=== PATIENT | female | born 1950 | race Caucasian/White ===

== ENCOUNTER 2018-01-04 08:49 | Inpatient (IN) | payer BC ==
[~2018-01-04 08:49] MED LIST: ALPRAZolam 0.25 MG TAB PO PRN; ALPRAZolam 0.5 MG TAB PO PRN; ASPIRIN 325 MG TAB PO STA; ATORVASTATIN 80 MG TAB PO STA; LIDOCAINE 2% INJ 20 MG/ML (20 ML MDV) ONE; MIDAZOLAM 2 MG/2 ML VIAL ONE; NITROGLYCERIN SL TABS 0.4 MG TAB SUBLINGUAL PRN; SODIUM CHLORIDE 0.9% 1,000 ML IV ONE; SODIUM CHLORIDE 0.9% 1,000 ML in EMPTY BAG 1 BAG IV ONE; diphenhydrAMINE 50 MG/ML 1 ML VIAL ONE
[2018-01-04] MEDS: MIDAZOLAM 2 MG/2 ML VIAL IVP ONE ×2 (08:57→09:11)
[2018-01-04] MEDS ORDERED: LIDOCAINE 2% INJ 20 MG/ML SQ ONE (08:57)
[2018-01-04] MEDS ORDERED: diphenhydrAMINE 50 MG/ML 1 ML VIAL IVP ONE (08:57)
[2018-01-04] MEDS ORDERED: fentaNYL (PF) 50 MCG/ML 2 ML AMP ONE (09:09)
[2018-01-04] MEDS ORDERED: fentaNYL (PF) 50 MCG/ML 2 ML AMP IVP ONE (09:10)
[2018-01-04] MEDS ORDERED: RX INFO: IV CONTRAST WAS GIVEN 1 EACH MISC MISCELLANE PRN (09:36)
[2018-01-04] MEDS ORDERED: IOPAMIDOL-370 125ML BTL INJ ONE (09:41)
[2018-01-04] MEDS ORDERED: SODIUM CHLORIDE 0.9% 1,000 ML IV SCH (09:45)
[2018-01-04] MEDS ORDERED: amLODIPine 10 MG TAB PO SCH (09:45)
[2018-01-04] MEDS ORDERED: ISOSORBIDE MONONITRATE ER 30 MG TAB.ER.24H PO SCH (09:45)
--- NOTE | 2018-01-04 10:06 | CC ---
CARDIAC CATHETERIZATION REPORT INDICATION: Unstable angina. PROCEDURE NOTE: After obtaining informed consent, left heart catheterization and coronary angiogram are performed via the right femoral artery. Patient received moderate conscious sedation. Total sedation time was 25 minutes. The left coronary artery was engaged using a size 4 Bart catheter. We also attempted a size 3.5 Bart catheter and an Amplatz left catheter. The right coronary artery was engaged using a standard right Bart catheter. The patient tolerated the procedure well without any obvious immediate complications. FINDINGS: 1. HEMODYNAMICS: Left ventricular end-diastolic pressure is 8 to 12 mm. There is no significant gradient across the aortic valve. 2. LEFT VENTRICULOGRAM: Left ventriculogram is not performed. 3. ANGIOGRAPHIC DATA: Right Coronary Artery: Right coronary artery is a large dominant vessel, gives off a large caliber PLV and PDA branches. The PLV is diffusely diseased. It is a small caliber vessel, at its worst it seems to be in 70% to 80% stenosis. The left main coronary artery is a long vessel but is free of significant stenosis. Divides into left anterior descending coronary artery and circumflex coronary artery. Both the LAD and circ are calcified. Circumflex coronary artery is free of significant disease. LAD shows diffuse disease involving the mid to distal portion. 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 PLAN: The angiographic data was reviewed by Dr. Morales the on-call coke [employer] mason and who felt that the patient is not very suitable for stenting at this time given the diffuse nature of the disease. The plan is to treat her with optimal medical therapy and see how she does. If symptoms persist, we can always bring her back and attempt angioplasty of the PLV branch. MMODL / IJN: [id number] /
[2018-01-04 10:27] VITALS: RESP 18
[2018-01-04 14:19] VITALS: BP 137/76; PULSE 78; TEMP 98.4
== END 2018-01-04 14:36 | disposition home or self-care (01) | DRG 287 ==
LOC: 6SEL 08:49
PROVIDERS: ADMIT Internal Medicine Cardiovascular Disease; ATTEND Internal Medicine Cardiovascular Disease
PROC: B2111ZZ Fluoroscopy of Multiple Coronary Arteries using Low Osmolar Contrast (ICD-10-PCS; principal; 2018-01-04 08:50)
PROC: 4A023N7 Measurement of Cardiac Sampling and Pressure, Left Heart, Percutaneous Approach (ICD-10-PCS; principal; 2018-01-04 08:50)
DX: I25.110 Atherosclerotic heart disease of native coronary artery with unstable angina pectoris (principal); Z82.49 Family history of ischemic heart disease and other diseases of the circulatory system; F17.200 Nicotine dependence, unspecified, uncomplicated; I10 Essential (primary) hypertension; I25.84 Coronary atherosclerosis due to calcified coronary lesion; Z79.899 Other long term (current) drug therapy
CPT/HCPCS: 93458

== ENCOUNTER → 2023-11-20 | Outpatient (CLI) | payer BC, MEDICARE ==
--- NOTE | 2023-11-21 11:40 | MR ---
EXAMINATION TYPE: MR knee RT wo con DATE OF EXAM: 11/20/2023 COMPARISON: NONE HISTORY: Right knee medial pain and swelling for 2 weeks, hx surgery for torn meniscus. TECHNIQUE: Multiplanar, multisequence images of the knee is performed without IV contrast. FINDINGS: MEDIAL MENISCUS: Medial extrusion of medial meniscus on coronal images Truncated appearance to the me dial meniscus particularly posterior horn with abnormal signal extending to inferior articular surfac e. Horizontal and globular signal anterior horn does not definitively extend to articular surface. LATERAL MENISCUS: Central increased signal lateral meniscus does not definitively extend to articular surface CRUCIATE LIGAMENTS: The anterior and posterior cruciate ligaments are intact and unremarkable. COLLATERAL LIGAMENTS: The medial collateral ligament and lateral collateral ligament complex are inta ct and unremarkable. EXTENSOR MECHANISM: Visualized quadriceps and patellar tendons are intact. EFFUSION: Moderate sized suprapatellar joint effusion. POPLITEAL CYST: Ill-defined moderate to severe fluid popliteal fossa likely ruptured cyst. Increased signal consistent with tendinosis of the proximal portion of the medial head of gastrocnemius tendon. TRICOMPARTMENT SPACES: [id number] tricompartmental joint space loss most prominent patellofemor al compartment. No significant spurring. 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 Also significant Cartilaginous loss medial tibial compartment. BONE MARROW SIGNAL: Areas of heterogeneous increased T2 signal involving the posterior patellar pole. Some central heterogeneous increased T2 signal involving the tibial plateau at level of the tibial c ondyles. OTHER: No additional significant abnormality is appreciated. IMPRESSION: 1. Likely prior surgery of the medial meniscus with recurrent full-thickness tear. 2. Possible intrasubstance tear central body lateral meniscus. 3. Moderate-size suprapatellar joint effusion. 4. At least moderate tricompartment degenerative changes most prominent medial tibiofemoral and murillo lofemoral compartment as detailed above. 5. Likely ruptured moderate to large size popliteal cyst.
== END | disposition home or self-care (01) ==
LOC: RADMRIMAIN 07:29
PROVIDERS: ATTEND Orthopaedic Surgery
DX: M17.11 Unilateral primary osteoarthritis, right knee (principal); M25.461 Effusion, right knee; M23.8X1 Other internal derangements of right knee; Z98.890 Other specified postprocedural states